=== PATIENT | female | born 1990 | race Caucasian/White ===

== ENCOUNTER 2025-05-12 10:35 | Observation (INO) | payer OTHER, SELFPAY ==
[2025-05-12] VITALS (7 sets, daily range): BP systolic 119–137; BP diastolic 60–69; PULSE 72–87; RESP 18–98; TEMP 36.8; BMI 40.1
--- NOTE | 2025-05-12 11:28 | XR_ITS ---
Examination: Complete OB ultrasound greater than 14 weeks Date and time of exam: May 12, 2025 1137 hours INDICATIONS: Onset vaginal bleeding today Findings: Viable intrauterine single fetus with single amniotic sac presentation transverse head maternal right Cardiac motion 133 BPM Placenta posterior grade 2 Three-vessel umbilical cord Amniotic fluid index 11.6 cm Cervix 4.4 cm Ovaries obscured by bowel gas. Composite estimated gestational age based on BPD, head circumference, abdominal circumference, femur length is 34 weeks 0 days Estimated weight 2268 g. Survey of intracranial anatomy, spinal anatomy, abdominal anatomy, four-chamber heart performed with no abnormalities identified. Impression: Viable intrauterine gestation transverse presentation Placenta posterior grade 2 no abruption.
[2025-05-12 12:21] LABS: Collection Type, Urine Clean Catch
[2025-05-12 12:39] LABS: Bacteria,Urine Rare; Bilirubin,Urine Negative (Negative); Blood,Urine Negative (Negative); Clarity,Urine Clear (Clear/Hazy); Color,Urine Lt-Yellow (Lt Yel-Yel); Culture Indicated,Urine Not Indicated; Glucose, Urine Negative (Negative); Ketones,Urine Negative (Negative); Leukocyte Esterase,Urine Negative (Negative); Nitrite,Urine Negative (Negative); PH,Urine 6.5 (5.0-7.0); Protein,Urine Negative (Neg - Trace); RBC,Urine 1 /hpf (0-3); Specific Gravity,Urine 1.008 (1.001-1.035); Squamous Epithelial Cell,Urine 1 /hpf (0-5); Urobilinogen,Urine Negative mg/dL (0.0-1.0); WBC,Urine 1 /hpf (0-5)
== END 2025-05-12 13:22 | disposition home or self-care (01) ==
PROVIDERS: Admitting Provider Obstetrics & Gynecology; Visit Provider Obstetrics & Gynecology
DX: O26.853 Spotting complicating pregnancy, third trimester (principal); Z3A.31 31 weeks gestation of pregnancy; O32.2XX0 Maternal care for transverse and oblique lie, not applicable or unspecified
CPT/HCPCS: 59025; 59899; 76805; 81001

== ENCOUNTER 2025-06-27 10:46 | Inpatient (IN) | payer OTHER, MEDICAID, SELFPAY ==
[2025-06-24 13:25] LABS: Basophils # (Auto) 0.0 Thou/mm3 (0.0-0.2); Basophils % (Auto) 0 % (0-2.5); Eosinophils # (Auto) 0.1 Thou/mm3 (0.0-0.5); Eosinophils % (Auto) 1 % (0-10); Hematocrit 32.8 % (36.0-46.0); Hemoglobin 11.2 g/dL (12.0-16.0); Immature Granulocytes Auto 0.03 Thou/mm3 (0.00-0.00); Lymphocytes # (Auto) 1.4 Thou/mm3 (1.0-4.8); Lymphocytes % (Auto) 20 % (10-50); Mean Corpuscular HGB Conc 34.1 g/dl (31.0-37.0); Mean Corpuscular Hemoglobin 30.5 pg (25.0-35.0); Mean Corpuscular Volume 89 fL (80-100); Monocytes # (Auto) 0.4 Thou/mm3 (0.0-0.8); Monocytes % (Auto) 5 % (0-12); Neutrophils # (Auto) 5.0 Thou/mm3 (1.8-7.7); Neutrophils % (Auto) 73 % (37-80); Nucleated Red Blood Cell # 0.00 Thou/mm3 (0.00-0.00); Nucleated Red Blood Cell % 0 /100 WBC (0); Platelet Count 254 Thou/mm3 (140-440); RDW Standard Deviation 44.2 fL (36.4-46.3); Red Blood Count 3.67 Miln/mm3 (4.00-5.20); White Blood Count 6.9 Thou/mm3 (3.6-11.0)
[2025-06-24 13:39] LABS: Alanine Aminotransferase 12 U/L (10-49); Albumin, Serum 3.8 gm/dL (3.5-5.0); Albumin/Globulin Ratio 1.5 (1.2-2.2); Alkaline Phosphatase 87 U/L (46-116); Anion Gap 9 (7-16); Aspartate Amino Transferase 18 U/L (0-34); BUN/Creatinine Ratio 9 Ratio (12-20); Bilirubin,Total 0.3 mg/dL (0.3-1.2); Blood Urea Nitrogen 6 mg/dL (9-23); Calcium 9.3 mg/dL (8.3-10.6); Calcium (Corrected) 9.5 mg/dL (8.5-10.1); Carbon Dioxide 22.7 mMol/L (20.0-31.0); Chloride 108 mMol/L (98-107); Creatinine (Component) 0.7 mg/dL (0.6-1.3); Globulin 2.5 gm/dL (2.3-3.5); Glucose 130 mg/dL (74-106); Osmolality,Calculated 279 (275-295); Potassium 3.6 mMol/L (3.4-5.1); Sodium 140 mMol/L (136-145); Total Protein 6.3 gm/dL (5.7-8.2); eGFR > 60 See Note
[2025-06-24 14:06] LABS: Syphilis Nonreactive (Nonreactive)
[2025-06-24 14:34] LABS: INR 0.9 (0.9-1.3); Partial Thromboplastin Time 25.1 Seconds (22.0-36.0); Prothrombin Time 9.9 Seconds (9.0-12.2)
--- NOTE | 2025-06-25 13:51 | ESHP_ITS ---
RE: DAKOTA RAMIREZ : 1990 DATE OF ADMISSION: 06/27/2025 HISTORY OF PRESENT ILLNESS: This is a 34-year-old 2, para 1-0-0-1 with due date of 38 weeks and 1 day on 06/27/2025, who presents for repeat delivery. She is also multiparous and desires voluntary sterilization. Her care was complicated by chronic hypertension for which she takes labetalol 150 mg one p.o. b.i.d. She reports occasional contractions. She denies any leaking or bleeding. She reports normal movement. 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 The patient was seen by Cardiology during her for mitral valve prolapse, and he recommended she continue on with the Labetalol 150mg po BID. She is asymptomatic. The patient is currently on antibiotics for her UTI. PAST MEDICAL HISTORY: Chronic hypertension, mitral valve prolapse, kidney stones. MEDICATIONS: 1. Labetalol 150 mg one p.o. b.i.d. 3. vitamin one p.o. daily. 4. Aspirin 81 mg one p.o. daily. 5. Cefuroxime 500 mg one p.o. b.i.d. SOCIAL HISTORY: She denies any alcohol, drug use or smoking. FAMILY HISTORY: Hypertension, heart disease. OBSTETRIC HISTORY: In 2019, 40 weeks, delivery 6 pounds 7 ounce male. No complications. PAST SURGICAL HISTORY: delivery in 2019 and appendectomy. REVIEW OF SYSTEMS: Denies any chest pain, palpitations, cough, fever, shortness of breath, or lower extremity pain. PHYSICAL EXAMINATION: VITAL SIGNS: Blood pressure 144/75, heart rate 79, respirations 18, temperature 98.2, weight 242 pounds. HEENT: Oropharynx and sclerae are clear. LUNGS: Clear to auscultation bilaterally. HEART: Regular rate and rhythm. ABDOMEN: Gravid. Term size. Old Pfannenstiel scar noted. EXTREMITIES: Nontender. SKIN: No gross rashes or lesions. NEUROLOGIC: No focal deficit. ASSESSMENT AND PLAN: Intrauterine at 38 weeks and 1 day, previous delivery, elective repeat delivery, chronic hypertension, multiparity, desires voluntary sterilization. PLAN: delivery and bilateral tubal ligation. Informed consent was obtained. The patient was made aware of the risks, complications, alternatives, benefits of the proposed procedure. She agrees. She is aware of the failure rate and increased risk of tubal ectopic gestational occurs. She is aware that vasectomy is simple, easier and safer with a lower failure rate, but her male partner declines that option. DT: 13:01:24 TT: 13:39:00 Ref: [id number] - TID: [id number] MTDD
[2025-06-27] VITALS (14 sets, daily range): BP systolic 0–144; BP diastolic 0–78; PULSE 65–86; RESP 12–23; TEMP 36.6–37; O2SAT 95–100; BMI 40.1
[2025-06-27] MEDS: RINGERS LACTATED 1000 ML 1,000 ML 100 ML IV (11:00)
[2025-06-27 11:58] LABS: Basophils # (Auto) 0.0 Thou/mm3 (0.0-0.2); Basophils % (Auto) 0 % (0-2.5); Eosinophils # (Auto) 0.1 Thou/mm3 (0.0-0.5); Eosinophils % (Auto) 1 % (0-10); Hematocrit 33.6 % (36.0-46.0); Hemoglobin 11.3 g/dL (12.0-16.0); Immature Granulocytes Auto 0.04 Thou/mm3 (0.00-0.00); Lymphocytes # (Auto) 1.5 Thou/mm3 (1.0-4.8); Lymphocytes % (Auto) 20 % (10-50); Mean Corpuscular HGB Conc 33.6 g/dl (31.0-37.0); Mean Corpuscular Hemoglobin 30.5 pg (25.0-35.0); Mean Corpuscular Volume 91 fL (80-100); Monocytes # (Auto) 0.6 Thou/mm3 (0.0-0.8); Monocytes % (Auto) 8 % (0-12); Neutrophils # (Auto) 5.4 Thou/mm3 (1.8-7.7); Neutrophils % (Auto) 71 % (37-80); Nucleated Red Blood Cell # 0.00 Thou/mm3 (0.00-0.00); Nucleated Red Blood Cell % 0 /100 WBC (0); Platelet Count 246 Thou/mm3 (140-440); RDW Standard Deviation 45.1 fL (36.4-46.3); Red Blood Count 3.70 Miln/mm3 (4.00-5.20); White Blood Count 7.6 Thou/mm3 (3.6-11.0)
[2025-06-27] MEDS: FAMOTIDINE INJ 10 MG/ML VIAL 2 ML 20 MG IV (12:16)
[2025-06-27] MEDS: ceFAZolin/D5W 2 GM IV 2 GM/100 ML BAG IV (12:16)
--- NOTE | 2025-06-27 12:31 | PD.GYNPROC ---
Operative Note - BASKETBALLS AND FOOTBALLS REVERSER Procedure Date of procedure: 06/27/25 Procedure Performed: Repeat low transverse C/S via pfannensteil skin incision Bilateral Salpingectomy Indication: IUP 38w1d Chronic HTN Prior C/S Desires Repeat Multiparity Desires Sterilization. Pre-Op diagnosis: IUP 38w1d Chronic HTN Prior C/S Desires Repeat Multiparity Desires Sterilization. Post-Op diagnosis: IUP 38w1d Chronic HTN Prior C/S Desires Repeat Multiparity Desires Sterilization. Anesthesia type: Spinal Procedure description: After proper informed consent was obtained and the patient was made aware of the risks, complications, alternatives and benefits of the proposed procedure she was taken to the operating room where she underwent induction of spinal anesthesia. She was prepped and draped in the usual sterile fashion. A timeout was performed.? A Pfannenstiel skin incision was made with the scalpel and carried through to the underlying layer of fascia with the Bovie. The fascia was nicked in the midline incision and the incision was extended bilaterally with the Bovie. The inferior aspect of the fascial incision was grasped with Rl clamps elevated and the underlying rectus muscle dissected off with the Bovie. The superior aspect the fascial incision was grasped with Rl clamps elevated and the underlying rectus muscle dissected off with the Bovie. The rectus muscles were in the midline. The peritoneum was grasped between 2 Vega clamps and entered sharply with the Metzenbaum scissors. The peritoneum was extended superiorly and inferiorly with good visualization of the bladder. The vesicouterine peritoneum was incised transversely and the bladder flap created digitally. A Richardson blade was inserted. A low transverse incision was made in the uterus with a scapel and the incision was extended digitally. The infant's head was unable to be delivered through the low transverse incision so a Mity vac vacuum was placed 3 cm forward of the posterior fontonelle over the saggital suture an on the first traction attempt the head delivered and the mouth and nose were suctioned with the bulb suction. The shoulder and body delivered atraumatically. The cord was clamped after 30 second delayed cord clamping and the cord was cut.? The infant was handed off to the waiting Pediatric staff, cord blood was collected for lab testing. The placenta was removed complete and intact. The uterus was exteriorized and cleared of all clots and debris. The uterine incision was closed with #1-0 chromic catgut suture in a running interlocking fashion. A second layer of the same suture was used to imbricate the first layer and obtain excellent hemostasis. The vesicouterine peritoneum was closed with 2-0 chromic catgut suture in a running fashion. Attention was turned to the left fallopian tube which was grasped at the fimbriated end with a Rebekah clamp and using the Enseal X-1 large jaw a left salpingectomy was performed. Hemostasis achieved. Attention was turned to the right fallopian tube which was grasped at the fimbriated end with a [place] clamp and using the Enseal X-1 large jaw a left salpingectomy was performed. Hemostasis achieved. The firm uterus was returned to the abdomen. The gutters were cleared of all clots and debris. The adnexae were revisualized along with the lower uterine segment and all was hemostatic. The peritoneum was closed with 0 chromic catgut suture in running fashion. The rectus muscle was closed with 0 chromic catgut suture. The fascia was closed with 0 Vicryl beginning at each angle and ending in the center in a running fashion. The subcutaneous tissue was irrigated with warmed normal saline solution and found to be hemostatic. The subcutaneous tissue was closed with 2-0 chromic catgut suture in a running fashion. The skin was closed with 4-0 Monocryl. A Dermabond Prineo dressing was applied and a sterile pressure dressing was applied.? She tolerated the procedure well. Counts were correct. I discussed with the patient the nature of her condition, intraoperative findings and expectation for recovery all questions answered. Specimen: left tube and right tube Findings: Viable 8/9 Amniotic fluid clear Placenta removed complete and intact. Uterus and ovaries and fallopian tubes appear grossly wnl. Complications: none Surgical staff Operation Date: 06/27/25 12:45 <No data on this case meets the specified criteria> Tania Cruz CRNA Diagnosis Discharge Diagnosis (1) delivery delivered: Status: Acute (2) Sterilization: Status: Acute (3) Chronic hypertension affecting : Status: Acute Problem List Completed Was Problem List Reviewed/Reconciled?: Yes
[2025-06-27 12:36] LABS: Syphilis Nonreactive (Nonreactive)
--- NOTE | 2025-06-27 13:33 | PD.LDDELS ---
Data ([place]) Data Hx Section: Yes : 2 Term: 1 : 0 Livin Abortions: Spontaneous & Theraputic: 0 Delivery Data ([place]) Labor Data Induction/Augmentation Agent: None ROM date: 06/27/25 ROM time: 12:59 Amniotic membrane rupture type: Artificial Amniotic fluid description: Clear Delivery Data EDC: 07/10/25 EDC calculated by:: LMP/early US confirmation delivery date: 06/27/25 delivery time: 13:00 Gestational age (weeks): 38 Gestational age (days): 1 Placenta delivery date: 06/27/25 Placenta delivery time: 13:00 Delivered by: Scott Colvin Delivery nurse: Suzette Horton RN [place] nurse: Lorraine OREILLY RN Director Trading at delivery: No Support person(s) at delivery: fob Delivery Method Delivery method: Low Transverse Presentation: Vertex position: OA Anesthesia Type Anesthesia Type: Spinal Anesthesia type: Spinal Placenta Placenta delivery description: Manual Removal Cord blood sent to lab: Yes cord blood collection: Cord Blood Type Episiotomy Episiotomy description: None EBL Estimated blood loss (ml): 700 Umbilical Cord cord description: 3 Vessels Additional Procedures Bilateral salpingectomy Vacuum assisted C/S: 1 pull Complications Complications: None [place] Data ([place]) Data 's gender: Female weight (gms): 8 lb 1.455 oz Weight (pounds): 8 lbs and 1.5 ozs [place] length: 22 in 1 minute: 8 5 minutes: 9
--- NOTE | 2025-06-27 13:38 | ESDS_ITS ---
DS: Providers Provider Date of admission: 06/27/25 10:46 Primary care physician: Gia Booth MD Admitting Provider: Scott Colvin MD Attending Provider on Admission: Scott Colvin MD Consults: 06/27/25 12:58 Referral Routine Comment: Attending Provider on DC: Scott Colvin MD Discharging Provider: Scott Colvin MD DS: Diagnosis Discharge Diagnosis (1) delivery delivered: Status: Acute (2) Sterilization: Status: Acute (3) Chronic hypertension affecting : Status: Acute Problem List Completed Was Problem List Reviewed/Reconciled?: Yes Summary/Hosp Course Peripartum Data Delivery Method: Low Transverse Episiotomy Description: None Procedures: Procedures Operation Date: 06/27/25 12:45 <No data on this case meets the specified criteria> Time Spent with Patient Time attestation: Total time spent providing and/or coordinating discharge services: Exam Vital Signs BP 0/0 L 06/27/25 11:10 Discharge Plan Plan Patient Disposition: HOME (Self Care) Patient condition on transfer: Stable Prescriptions/Referrals Prescriptions/Med Rec: New ibuprofen 600 mg tablet 600 mg PO Q6H PRN (Reason: pain) Qty: 30 0RF Continued labetalol 100 mg Tablet 150 mg PO BID Vitamin Plus Low Iron 27 mg iron- 1 mg tablet 1 tab PO QDAY Patient Comments: TAKE 1 TABLET BY MOUTH ONCE DAILY Referrals: Gia Booth MD [Primary Care Provider] - Patient/Caregiver Discharge Instructions Discharge Activity: activity as tolerated Other Discharge Activity Instructions:: Follow up office 1 week. She already has a Rx for [place]. Education Materials: C Section Dc Print Language: Kosovan Stand Alone Forms: Janna Award Info., Patient Portal Info Letter Planned Discharge Date 06/29/25
[2025-06-27] MEDS: METOCLOPRAMIDE INJ 5 MG/ML VIAL 2 ML 10 MG IVP (14:15)
[2025-06-27] MEDS: OXYTOCIN in NS 20 units 20 UNIT/1,000 ML BAG 125 UNIT IV ×2 (14:32→22:56)
[2025-06-27] MEDS: KETOROLAC INJ 30 MG/ML VIAL IVP (15:58)
[2025-06-27 19:09] LABS: Basophils # (Auto) 0.0 Thou/mm3 (0.0-0.2); Basophils % (Auto) 0 % (0-2.5); Eosinophils # (Auto) 0.0 Thou/mm3 (0.0-0.5); Eosinophils % (Auto) 0 % (0-10); Hematocrit 31.3 % (36.0-46.0); Hemoglobin 10.4 g/dL (12.0-16.0); Immature Granulocytes Auto 0.04 Thou/mm3 (0.00-0.00); Lymphocytes # (Auto) 1.4 Thou/mm3 (1.0-4.8); Lymphocytes % (Auto) 14 % (10-50); Mean Corpuscular HGB Conc 33.2 g/dl (31.0-37.0); Mean Corpuscular Hemoglobin 30.3 pg (25.0-35.0); Mean Corpuscular Volume 91 fL (80-100); Monocytes # (Auto) 0.8 Thou/mm3 (0.0-0.8); Monocytes % (Auto) 8 % (0-12); Neutrophils # (Auto) 7.7 Thou/mm3 (1.8-7.7); Neutrophils % (Auto) 78 % (37-80); Nucleated Red Blood Cell # 0.00 Thou/mm3 (0.00-0.00); Nucleated Red Blood Cell % 0 /100 WBC (0); Platelet Count 224 Thou/mm3 (140-440); RDW Standard Deviation 44.5 fL (36.4-46.3); Red Blood Count 3.43 Miln/mm3 (4.00-5.20); White Blood Count 10.0 Thou/mm3 (3.6-11.0)
[2025-06-28] VITALS (9 sets, daily range): BP systolic 119–149; BP diastolic 67–77; PULSE 76–96; RESP 13–20; TEMP 36.4–37.3; O2SAT 97–100
[2025-06-28] MEDS: KETOROLAC INJ 30 MG/ML VIAL IVP (00:44)
[2025-06-28] MEDS: SIMETHICONE 80 MG CHEW PO ×2 (00:44→20:14)
--- NOTE | 2025-06-28 07:15 | ESPR_ITS ---
RE: DAKOTA RAMIREZ : 1990 DATE OF SERVICE: 06/28/2025 SUBJECTIVE: Postoperative day #1, the patient denies any problem or complaint. She is voiding and ambulating and tolerating her diet and passing flatus. She denies any excessive vaginal bleeding. She denies any dizziness or lightheadedness. She denies any chest pain, palpitations, shortness of breath, or lower extremity pain. Her blood pressure medication in the form of labetalol was withheld this morning due to normal blood pressures. OBJECTIVE: Vital Signs: Blood pressure 128/76 mmHg, heart rate 83, respirations 20, temperature 98, pulse oximetry is 97% on room air. Lungs: Clear to auscultation bilaterally. Heart: Regular rate and rhythm. Abdomen: Dressing dry and intact. Extremities: Nontender. Skin: No gross rashes or lesions. Neurological: No focal deficits. ASSESSMENT: Postop day #1, status post bilateral salpingectomy. PLAN: Remove dressing, discontinue IV, encourage ambulation, support, possible discharge home tomorrow. DT: 06:54:23 TT: 07:13:00 Ref: [id number] - TID: [id number]
[2025-06-28] MEDS: ENOXAPARIN SOD INJ 40 MG/0.4 ML SYRINGE SC (08:46)
[2025-06-28] MEDS: IBUPROFEN TAB 400 MG TABLET 800 MG PO ×2 (08:46→20:13)
[2025-06-28] MEDS: DOCUSATE SOD 100 MG CAPSULE PO (08:46)
[2025-06-28] MEDS: HYDROcodone/APAP 5/325 TABLET 1 TAB PO (14:50)
[2025-06-28] MEDS: Milk Of Magnesia Susp 30 ML UDC PO (20:14)
[2025-06-29 03:43] VITALS: BP 135/82; PULSE 97; RESP 14; TEMP 36.5; O2SAT 97
[2025-06-29] MEDS: IBUPROFEN TAB 400 MG TABLET 800 MG PO (04:57)
--- NOTE | 2025-06-29 06:41 | ESPR_ITS ---
RE: DAKOTA RAMIREZ : 1990 DATE OF SERVICE: 06/29/2025 S: Postop day #2, the patient denies any problem or complaints. O: Vital Signs: Blood pressure 135/82, heart rate 97, respirations 14, temperature 97.7, and pulse oximetry 97% on room air. Lungs: Clear to auscultation bilaterally. Heart: Regular rate and rhythm. Abdomen: Incision clear and intact. Extremities: Nontender. A: 1. Postop day #2, status post delivery and bilateral salpingectomy. 2. Chronic hypertension with stable blood pressures on labetalol. P: Discharge home. Followup in the office in 1 week. Continue labetalol. Discharge instructions given. DT: 06:34:37 TT: 06:39:00 Ref: [id number] - TID: [id number]
[2025-06-29] MEDS: ENOXAPARIN SOD INJ 40 MG/0.4 ML SYRINGE SC (08:33)
[2025-06-29] MEDS: DOCUSATE SOD 100 MG CAPSULE PO (08:33)
[2025-06-29 08:42] VITALS: BP 127/87; PULSE 92
[2025-06-29 08:46] VITALS: BP 127/87; PULSE 92; RESP 19; TEMP 37.2; O2SAT 97
== END 2025-06-29 11:40 | disposition home or self-care (01) | DRG 784 ==
LOC: S4SX 12:27 → S4NX 12:37
PROVIDERS: Admitting Provider Specialist; PCP Internal Medicine; Visit Provider Specialist
PROC: 0UL70ZZ Occlusion of Bilateral Fallopian Tubes, Open Approach (ICD-10-PCS; CPT 59514; principal; 2025-06-27 12:30)
DX: O34.211 Maternal care for low transverse scar from previous cesarean delivery (principal); O10.92 Unspecified pre-existing hypertension complicating childbirth; O23.43 Unspecified infection of urinary tract in pregnancy, third trimester; Z3A.38 38 weeks gestation of pregnancy; Z37.0 Single live birth; Z30.2 Encounter for sterilization; Z79.82 Long term (current) use of aspirin; Z79.899 Other long term (current) drug therapy
CPT/HCPCS: 36415; 80053; 85025; 85610; 85730; 86780; 86850; 86900; 86901; A4649; J0689; J1650; J1885; J2175; J2274; J2371; J2590; J2765; J3010; J3490; J7120; A9270; J2270